=== PATIENT | female | born 1965 | race Caucasian/White ===

== ENCOUNTER 2020-03-20 17:43 | Emergency (ER) | payer OTHER ==
[2020-03-20 18:21] LABS: #Basophils 0.1 thou/uL (0.0-0.2); #Lymphocytes 1.5 thou/uL (1.20-3.40); #Monocytes 0.5 thou/uL (0.11-0.59); %Basophils 0.5 % (0.0-1.0); %Eosinophils 0.1 % (0.0-10.0); %Lymphocytes 12.5 % (21.0-51.0); %Monocytes 4.4 % (0.0-10.0); %Neutrophils 82.5 % (42.0-75.0); Hemoglobin 16.3 g/dL (12.0-16.0); Mean Corpuscular Hemoglobin 29.8 pg (27.0-31.0); Mean Corpuscular Volume 90.4 fL (78.0-98.0); Platelet Count 303 thou/uL (130-400); RBC Distribution Width 11.3 % (11.5-14.5); Red Blood Cell (RBC) Count 5.48 mill/uL (4.20-5.40); White Blood Cell (WBC) Count 12.2 thou/uL (4.8-10.8)
[2020-03-20 18:34] LABS: ALT (SGPT) 22 U/L (8-55); AST (SGOT) 14 U/L (5-34); Albumin 4.2 g/dL (3.5-5.0); Alkaline Phosphatase 149 U/L (40-110); Anion Gap 25 mmol/L (10-20); BUN (Urea Nitrogen) 10 mg/dL (9.8-20.1); Base Excess-Venous -16.3 mmol/L (-2.0 to 3.0); Bicarbonate (HCO3v) 10.7 mmol/L (22.0-28.0); Bilirubin, Total 0.5 mg/dL (0.2-1.2); CO2 Tension (PvCO2) 29.1 mmHg (40.0-50.0); Calc. Creatinine Clearance 0 mL/min (70-130); Calcium 8.8 mg/dL (7.8-10.44); Calcium, Ionized 1.21 mmol/L (1.15-1.33); Chloride 100 mmol/L (98-107); Chloride 99 mmol/L (98-107); Globulin 2.9 g/dL (2.4-3.5); Glucose 336 mg/dL (70-105); Hemoglobin - Calc 17.7 g/dL (12.0-16.0); Potassium 3.9 mmol/L (3.5-5.1); Protein, Total 7.1 g/dL (6.0-8.3); Sodium 126 mmol/L (138-145); Sodium 128 mmol/L (136-145); T. Carbon Dioxide 11.5 mmol/L (22.0-28.0); vO2 Saturation-calc 42.3 % (60.0-85.0)
[2020-03-20 18:36] LABS: Carbon Dioxide 8 mmol/L (22-29)
[2020-03-20] MEDS ORDERED: Sodium Chloride 0.9% 1,000 ML ONE (18:42)
== END 2020-03-20 19:10 | disposition short-term general hospital (02) ==
LOC: MADERS 17:43
DX: E11.10 Type 2 diabetes mellitus with ketoacidosis without coma (principal); F17.210 Nicotine dependence, cigarettes, uncomplicated; Z79.4 Long term (current) use of insulin
CPT/HCPCS: 36415; 80053; 82330; 82803; 83605; 85025; 99284; J7050